=== PATIENT | male | born 1985 | race African-American/Black ===

== ENCOUNTER 2020-09-14 15:32 | Emergency (ER) | payer OTHER ==
[~2020-09-14] VITALS: Ht 165.1 cm; Wt 63.5 kg
[2020-09-14] MEDS ORDERED: BUTALB-APAP-CA1 EACH PO (17:38)
[2020-09-14 17:45] VITALS: BP 112/66
== END 2020-09-14 17:46 | disposition home or self-care (01) ==
LOC: ER 15:32
DX: S06.0X0A Concussion without loss of consciousness, initial encounter (principal); Z85.71 Personal history of Hodgkin lymphoma; V49.69XA Unspecified car occupant injured in collision with other motor vehicles in traffic accident, initial encounter; Y93.89 Activity, other specified; Y92.488 Other paved roadways as the place of occurrence of the external cause; Y99.8 Other external cause status

== ENCOUNTER 2021-04-10 13:10 | Emergency (ER) | payer BC ==
[~2021-04-10] VITALS: Ht 165.1 cm; Wt 65.8 kg
[2021-04-10 13:10] VITALS: BP 109/63
[~2021-04-10 13:10] MED LIST: BUTALB-APAP-CA1 EACH PO
== END 2021-04-10 16:00 | disposition home or self-care (01) ==
LOC: ER 13:10
PROVIDERS: Physician Assistant
DX: Z20.2 Contact with and (suspected) exposure to infections with a predominantly sexual mode of transmission (principal)